=== PATIENT | female | born 1955 | race Hispanic/Latino ===

== ENCOUNTER 2021-12-31 14:41 | Emergency (ER) | payer BC, MEDICARE ==
[~2021-12-31] VITALS: Ht 162.6 cm; Wt 90.7 kg
[~2021-12-31 14:41] MED LIST: Z.0.ALEVE220 MG PO
[2021-12-31] MEDS ORDERED: HYDROCODONE/APAP 5MG-325MG TAB PO ONE (16:30)
[2021-12-31] MEDS ORDERED: ANAPROX DS550 MG PO (16:31)
== END 2021-12-31 16:40 | disposition home or self-care (01) ==
LOC: ER 15:03
DX: M25.561 Pain in right knee (principal); M25.461 Effusion, right knee; Y93.01 Activity, walking, marching and hiking
CPT/HCPCS: 99283